=== PATIENT | male | born 1990 | race Caucasian/White ===

== ENCOUNTER 2017-03-16 16:54 | Inpatient (IN) | payer OTHER ==
[~2017-03-16] VITALS: Ht 177.8 cm; Wt 200.0 kg
[~2017-03-16 16:54] MED LIST: ATROVENT 00.5 MG/2.5 IH; Ceftin PO; FERROUS SULFAT325 MG PO; FUROSEMIDE40 MG PO; GLIPIZIDE5 MG PO; LASIX PO; LYRICA75 MG PO; METFORMIN HCL1000 MG PO; NOHOMEMEDS; PROAIR HFA8.5 GM IH; PROVENTIL,2.5 MG/3 M IH
[2017-03-16 17:49] LABS: HEMATOCRIT 42.3 % (38.0-50.0); HEMOGLOBIN 13.9 G/DL (12.5-16.6); MCH 27.9 PG (29.0-34.0); MCHC 32.9 G/DL (30.0-36.0); MCV 84.8 FL (86-99); PLATELET COUNT 162 K/uL (156-360); RBC DIS.WIDTH-CV 15.5 % (11.8-14.6); RBC DIS.WIDTH-SD 47.8 % (39-53); RED BLOOD COUNT 4.99 M/uL (4.00-5.50); WHITE BLOOD COUNT 6.5 K/uL (4.1-10.2)
[2017-03-16 17:57] LABS: CHLORIDE 93 mEq/L (99-109); POTASSIUM 4.5 mEq/L (3.7-5.4); SODIUM 132 mEq/L (136-147)
[2017-03-16 17:58] LABS: GLUCOSE 250 mg/dL (70-99)
[2017-03-16 18:02] LABS: CREATININE 0.7 mg/dL (0.6-1.3); GFR ESTIMATE (CALCULATED) > 59 mL/min/ (58.99-99999)
[2017-03-16 18:03] LABS: UREA NITROGEN (BUN) 8 mg/dL (9-23)
[2017-03-16 18:14] LABS: TROP-I INTERPRETATION NEGATIVE; TROPONIN-I < 0.01 ng/mL (0.0-0.30)
[2017-03-17] VITALS (7 sets, daily range): BP systolic 140–166; BP diastolic 63–84
[2017-03-18 03:30] VITALS: BP 134/63
[2017-03-18 07:12] LABS: BASOPHIL (%) 0.3 % (0-1); EOSINOPHIL (%) 1.8 % (0-5); EOSINOPHIL COUNT 0.1 K/uL (0-0.3); HEMATOCRIT 41.3 % (38.0-50.0); IMMATURE GRANULOCYTE (%) 0.7 % (0.0-0.7); LYMPHOCYTE (%) 32.7 % (15-42); MCH 27.2 PG (29.0-34.0); MCHC 31.5 G/DL (30.0-36.0); MCV 86.4 FL (86-99); MONOCYTE (%) 8.7 % (3-12); MONOCYTE COUNT 0.5 K/uL (0-0.8); NEUTROPHIL (%) 55.8 % (45-76); NEUTROPHIL COUNT 3.4 K/uL (1.8-6.4); PLATELET COUNT 160 K/uL (156-360); RBC DIS.WIDTH-CV 15.6 % (11.8-14.6); RBC DIS.WIDTH-SD 49.8 % (39-53); RED BLOOD COUNT 4.78 M/uL (4.00-5.50); WHITE BLOOD COUNT 6.1 K/uL (4.1-10.2)
[2017-03-18 07:31] VITALS: BP 140/69
[2017-03-18 07:44] LABS: CHLORIDE 93 MEQ/L (99-109); CREATININE 0.5 MG/DL (0.6-1.3); GFR ESTIMATE (CALCULATED) > 59 mL/min/ (58.99-99999); GLUCOSE 273 mg/dL (70-99); POTASSIUM 4.2 MEQ/L (3.7-5.4); SODIUM 131 MEQ/L (136-147); UREA NITROGEN (BUN) 7 mg/dL (9-23)
[2017-03-18 16:35] LABS: THYROTROPIN (TSH) 3.5 MIU/L (0.4-5.5)
[2017-03-18 16:50] VITALS: BP 144/76
[2017-03-19 00:38] VITALS: BP 157/72
[2017-03-19 06:24] LABS: HEMATOCRIT 41.2 % (38.0-50.0); MCH 27.5 PG (29.0-34.0); MCHC 31.6 G/DL (30.0-36.0); MCV 87.3 FL (86-99); PLATELET COUNT 150 K/uL (156-360); RBC DIS.WIDTH-CV 15.5 % (11.8-14.6); RED BLOOD COUNT 4.72 M/uL (4.00-5.50); WHITE BLOOD COUNT 6.3 K/uL (4.1-10.2)
[2017-03-19 06:51] LABS: CHLORIDE 97 MEQ/L (99-109); CREATININE 0.4 MG/DL (0.6-1.3); GFR ESTIMATE (CALCULATED) > 59 mL/min/ (58.99-99999); GLUCOSE 198 mg/dL (70-99); MAGNESIUM 2.1 mg/dl (1.3-2.7); POTASSIUM 3.9 MEQ/L (3.7-5.4); SODIUM 137 MEQ/L (136-147); UREA NITROGEN (BUN) 6 mg/dL (9-23)
[2017-03-19 08:00] VITALS: BP 152/79
[2017-03-19 15:32] LABS: HEMOGLOBIN A1c (GLYCOHEMOGLOB) 11.8 % (Below 5.7)
[2017-03-19 15:34] VITALS: BP 148/85
[2017-03-19 23:35] VITALS: BP 142/80
[2017-03-20 06:27] LABS: HEMATOCRIT 39.7 % (38.0-50.0); HEMOGLOBIN 12.5 G/DL (12.5-16.6); MCH 27.7 PG (29.0-34.0); MCHC 31.5 G/DL (30.0-36.0); PLATELET COUNT 167 K/uL (156-360); RBC DIS.WIDTH-CV 15.3 % (11.8-14.6); RBC DIS.WIDTH-SD 49.4 % (39-53); RED BLOOD COUNT 4.51 M/uL (4.00-5.50); WHITE BLOOD COUNT 8.1 K/uL (4.1-10.2)
[2017-03-20 06:51] LABS: CHLORIDE 96 MEQ/L (99-109); CREATININE 0.5 MG/DL (0.6-1.3); GFR ESTIMATE (CALCULATED) > 59 mL/min/ (58.99-99999); GLUCOSE 171 mg/dL (70-99); POTASSIUM 3.8 MEQ/L (3.7-5.4); SODIUM 136 MEQ/L (136-147); UREA NITROGEN (BUN) 6 mg/dL (9-23)
[2017-03-20 07:28] VITALS: BP 121/58
[2017-03-20 15:31] VITALS: BP 132/66
[2017-03-20 23:37] VITALS: BP 140/79
[2017-03-21 06:01] LABS: HEMOGLOBIN 12.1 G/DL (12.5-16.6); MCH 27.1 PG (29.0-34.0); MCV 87.4 FL (86-99); PLATELET COUNT 184 K/uL (156-360); RBC DIS.WIDTH-CV 15.2 % (11.8-14.6); RBC DIS.WIDTH-SD 48.9 % (39-53); RED BLOOD COUNT 4.46 M/uL (4.00-5.50); WHITE BLOOD COUNT 8.8 K/uL (4.1-10.2)
[2017-03-21 06:13] LABS: CHLORIDE 98 MEQ/L (99-109); CREATININE 0.4 MG/DL (0.6-1.3); GFR ESTIMATE (CALCULATED) > 59 mL/min/ (58.99-99999); GLUCOSE 160 mg/dL (70-99); POTASSIUM 3.9 MEQ/L (3.7-5.4); SODIUM 139 MEQ/L (136-147); UREA NITROGEN (BUN) 6 mg/dL (9-23)
[2017-03-21 08:00] VITALS: BP 134/70
[2017-03-21 16:00] VITALS: BP 146/80
[2017-03-22] VITALS: BP 143/72
[2017-03-22 07:25] VITALS: BP 150/86
[2017-03-22 15:49] VITALS: BP 154/73
[2017-03-22] MEDS ORDERED: NOVOLOG 10100 UNITS/ SC (17:09)
[2017-03-22] MEDS ORDERED: LEVEMIR100 UNIT/2 SC (17:09)
[2017-03-22] MEDS ORDERED: MUCINEX600 MG PO (17:09)
[2017-03-22] MEDS ORDERED: CEFDINIR300 MG PO (17:14)
[2017-03-22] MEDS ORDERED: PREDNISONE10 MG PO (17:14)
== END 2017-03-22 18:32 | disposition home or self-care (01) | DRG 193 ==
LOC: EME 16:54 → EXP 16:54 → 5SOUTH 03-17 00:50 → EDOF 03-17 00:50 → ENRESERV 03-17 00:52 → 5SOUTH 03-17 02:14
PROVIDERS: Hospitalist; Internal Medicine
PROC: 5A09557 Assistance with Respiratory Ventilation, Greater than 96 Consecutive Hours, Continuous Positive Airway Pressure (ICD-10-PCS; principal; 2017-03-17)
DX: J18.9 Pneumonia, unspecified organism (principal); J96.01 Acute respiratory failure with hypoxia; Z68.44 Body mass index [BMI] 60.0-69.9, adult; I50.810 Right heart failure, unspecified; E66.01 Morbid (severe) obesity due to excess calories; I87.2 Venous insufficiency (chronic) (peripheral); E11.9 Type 2 diabetes mellitus without complications; E87.1 Hypo-osmolality and hyponatremia; K76.0 Fatty (change of) liver, not elsewhere classified; I27.29 Other secondary pulmonary hypertension; G47.33 Obstructive sleep apnea (adult) (pediatric); J45.909 Unspecified asthma, uncomplicated; I89.0 Lymphedema, not elsewhere classified; J98.4 Other disorders of lung; I87.8 Other specified disorders of veins; Z87.01 Personal history of pneumonia (recurrent); Z79.4 Long term (current) use of insulin; Z82.5 Family history of asthma and other chronic lower respiratory diseases; Z82.49 Family history of ischemic heart disease and other diseases of the circulatory system
CPT/HCPCS: 71046; 71275; 80048; 82533 91; 82948; 83036; 83605; 83735; 83880; 83930; 83935; 84443; 84484; 85025; 85027; 87040; 87070; 87205; 87449; 87502; 93005; 93306; 93970; 94640; 94640 76; 94660; 94667; 94668; 94799; 99202; 99281; 99285; J0295; J0456; J0696; J1644; J1815; J2930; J7050